=== PATIENT | female | born 1995 | race Caucasian/White ===

== ENCOUNTER 2018-05-07 15:00 | Outpatient (CLI) | payer OTHER ==
[~2018-05-07] VITALS: Ht 172.7 cm; Wt 95.5 kg
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
[2018-05-07 15:24] VITALS: BP 120/65; PULSE 95; TEMP 98
[2018-05-07] MEDS ORDERED: PRENATAL MVI (15:24)
== END 2018-05-07 16:25 | disposition home or self-care (01) ==
LOC: LDRO 15:00
DX: Z04.1 Encounter for examination and observation following transport accident (principal); V89.2XXA Person injured in unspecified motor-vehicle accident, traffic, initial encounter; Z3A.37 37 weeks gestation of pregnancy